=== PATIENT | female | born 1955 | race Caucasian/White ===

== ENCOUNTER 2016-08-10 15:05 | Emergency (ER) | payer OTHER | END 2016-08-10 17:24 | disposition home or self-care (01) | LOC: ER 15:05 | DX: J06.9 Acute upper respiratory infection, unspecified (principal); R11.0 Nausea; R63.0 Anorexia; I11.9 Hypertensive heart disease without heart failure; I51.9 Heart disease, unspecified; Z87.09 Personal history of other diseases of the respiratory system; Z85.828 Personal history of other malignant neoplasm of skin; Z98.890 Other specified postprocedural states; Z90.49 Acquired absence of other specified parts of digestive tract; Z90.710 Acquired absence of both cervix and uterus; R63.4 Abnormal weight loss; Z79.899 Other long term (current) drug therapy; Z88.5 Allergy status to narcotic agent; Z79.82 Long term (current) use of aspirin | CPT/HCPCS: 99282 ==